=== PATIENT | male | born 1975 | race Hispanic/Latino ===

== ENCOUNTER 2019-08-04 17:10 | Emergency (ER) | payer SELFPAY ==
[~2019-08-04] VITALS: Ht 180.3 cm; Wt 86.2 kg
== END 2019-08-04 18:04 | disposition home or self-care (01) ==
LOC: FSED 17:10
DX: S61.411A Laceration without foreign body of right hand, initial encounter (principal); Y99.0 Civilian activity done for income or pay; I10 Essential (primary) hypertension; F17.210 Nicotine dependence, cigarettes, uncomplicated
CPT/HCPCS: 99282